=== PATIENT | female | born 1990 | race Caucasian/White ===

== ENCOUNTER 2023-05-17 05:58 | Inpatient (IN) | payer BC ==
[2023-05-17] VITALS (38 sets, daily range): BP systolic 90–141; BP diastolic 43–100; PULSE 68–115; TEMP 98.1–98.6
[~2023-05-17] VITALS: Ht 162.7 cm; Wt 83.3 kg
[~2023-05-17 05:58] MED LIST: BACTRIM DS 8001 TAB PO; CEFTIN250 MG PO; CETIRIZINE; LOVENOX 4040 MG/0.4 SQ; NORCO 325 MG-51 TAB PO; PNV-SELECT1 TAB PO; PRILOTC PO; PYRIDIUM 100MG100 MG PO; PYRIDIUM200 M1 PO; ZOFRAN 4MG T4 MG/TAB PO
--- NOTE | 2023-05-17 06:25 | NUR ---
PT ORIENTED TO ROOM, AND CHANGED INTO GOWN. FOB PRESENT. PLACED ON MONITORS. FHT CATAGORY 1 TRACING. VS STABLE. SVE 5/80/-2. PT REPORTS NO LOF OR VB. CX ARE UNCOMFORTABLE AND REGULAR APPROX 5 MINS APPART. REGULAR MOVEMENT.
--- NOTE | 2023-05-17 06:29 | NUR ---
DR ELLIOTT WAS CALLED TO LET HIM KNOW THAT PT WAS HERE AND 5-6 CM DIALATED. HE SAID TO GO AHEAD AND ADMIT HER. THAT SHE WAS ABLE TO HAVE AN EPIDURAL WHENEVER SHE WAS READY.
[2023-05-17 07:28] LABS: BASO # 0.1 K/mm3 (0.0-0.2); BASO % 0.3 % (0.0-2.0); EOS % 0.2 % (0.0-4.0); GRAN # 16.4 K/mm3 (1.4-6.5); GRAN % 84.9 % (42.2-75.2); HEMOGLOBIN 11.5 g/dl (12.5-16.0); LYMPH # 1.2 K/mm3 (1.2-3.4); LYMPH % 6.4 % (20.0-51.0); MEAN CELL VOLUME 90 fl (80.0-100.0); MEAN CORPUSCULAR HEMOGLOBIN 30 pg (27-31); MEAN CORPUSCULAR HGB CONC 33 g/dl (33.0-37.0); MEAN PLATELET VOLUME 10.5 fl (7.4-10.4); MONO # 1.4 K/mm3 (0.1-0.6); MONO % 7.1 % (1.7-9.3); PLATELET COUNT 221 K/mm3 (130-400); RED BLOOD COUNT 3.88 M/mm3 (4.10-5.30); REDCELL DISTRIBUTION WIDTH-CV 13.2 % (11.5-14.5)
[2023-05-17 07:30] LABS: HEMATOCRIT 34.8 % (37.0-47.0)
--- NOTE | 2023-05-17 07:30 | NUR ---
DR ELLIOTT ON UNIT AND AT BEDSIDE. INTRODUCED HIMSELF TO THE PT. LET HER KNOW THAT SHE COULD HAVE AN EPIDURAL AT ANY TIME AND HE WOULD CHECK BACK IN WITH HER LATER.
--- NOTE | 2023-05-17 07:37 | NUR ---
0737- Sury called for PT requested epidural. She said she would be here shortly. 0800- Sury on unit. 0806- Sury at bedside. Pt was repositioned to sitting, BP and o2 monitors applied. Verbal concent receaved. 0810- Single Shot. Pt tolerated well. VS stable. Pt repositioned to wedge left.
--- NOTE | 2023-05-17 08:00 | NUR ---
[address] INTO ROOM SO PT WAS SAT UP INTO POSITION. DIFFICULTY TRACING FHT AND CONTRACTIONS AT THIS TIME. THIS NURSE AUDIBLY LISTENED TO HEART TONES, 120'S TO 130'S. CX EVERY 3-5 MINUTES.
--- NOTE | 2023-05-17 09:09 | NUR ---
DR MENDEZ ON UNIT AND AT BEDSIDE. SVE /-1. AROM AT 0911, CLEAR FLUID. NO ODOR NOTED. DR MENDEZ WILL BE RESUMING CARE.
--- NOTE | 2023-05-17 10:22 | NUR ---
DR MENDEZ ON UNIT AND AT BEDSIDE. SVE /-1. WILL RECHECK IN 1 HOUR.
--- NOTE | 2023-05-17 11:32 | NUR ---
1132- E LIP/90/-1. PT HAS A LIP OF CERVIX ON THE RIGHT SIDE, NO CERVIX FELT ON THE LEFT. PT HAD MODERATE BLOODY SHOW. DR MENDEZ CALLED AT 1134 FOR AN UPDATE. UPDATE GIVEN. DR MENDEZ THEN ASKED FOR AN UPDATE IN 1 HOUR, AND ASKED TO START PITOCIN DUE TO CX SPACING.
--- NOTE | 2023-05-17 14:35 | NUR ---
1420- PT SVE /-1, ANTIERIOR CERVIX SLIGHTLY SWOLLEN. BABY OP. CALLED DR MENDEZ TO UPDATE. SHE SAID SHE WAS ON HER WAY. 1435- DR MENDEZ ON UNIT AND AT BEDSIDE. DR MENDEZ EXPLAINED THE OPTIONS FOR THE PATIENT, BUT EXPRESSED CONCERN ABOUT HER CERVIX SWELLING, AND BABIES SIZE AND POSITION. PT AND FOB AGREED A WOULD BE BEST. PITOCIN TURNED OFF PT PREPAIRED FOR OR. TP TAKEN TO OR AT 1454.
[2023-05-17] MEDS ORDERED: MOTRIN 800800 MG/TAB PO (16:50)
[2023-05-17] MEDS ORDERED: PERCOCET 325 MG1 TA2 PO (16:50)
[2023-05-18 03:00] VITALS: BP 122/67; PULSE 72; TEMP 98.1
[2023-05-18 08:45] VITALS: BP 118/48; PULSE 85; TEMP 97.7
[2023-05-18] MEDS ORDERED: PERCOCET 325 MG1 TA2 PO (09:29)
[2023-05-18] MEDS ORDERED: MOTRIN 800800 MG/TAB PO (09:29)
[2023-05-18 11:30] VITALS: BP 106/65; PULSE 80; TEMP 97.6
[2023-05-18 16:00] VITALS: BP 107/58; PULSE 84; TEMP 97.8
[2023-05-18 21:00] VITALS: BP 110/62; PULSE 66; TEMP 98
[2023-05-19 07:30] VITALS: BP 104/56; PULSE 79; TEMP 98.1
--- NOTE | 2023-05-19 09:42 | NUR ---
Initial visit; Parents thanked Publishing Agent for offering congratulations and God's blessings for the of their daughter. Publishing Agent thanked family for choosing our hospital.
[2023-05-19 16:34] VITALS: BP 104/58; PULSE 92; TEMP 97.9
--- NOTE | 2023-05-19 19:25 | NUR ---
Discharge instructions reviewed withg pt and spouse. Questions invited and answered. Off unit via wheelchair per pt request. Spouse carrying infant in car seat.
== END 2023-05-19 19:25 | disposition home or self-care (01) | DRG 788 ==
LOC: LDRO 05:58 → LDR 06:35 → OB 06:35
PROVIDERS: Obstetrics & Gynecology; ADMIT Obstetrics & Gynecology
PROC: 10D00Z1 Extraction of Products of Conception, Low, Open Approach (ICD-10-PCS; principal; 2023-05-17)
DX: O87.0 Superficial thrombophlebitis in the puerperium (principal); I80.01 Phlebitis and thrombophlebitis of superficial vessels of right lower extremity; Z37.0 Single live birth; Z3A.39 39 weeks gestation of pregnancy
CPT/HCPCS: J0456; J0665; J0690; J1100; J1650; J2405; J2550; J2590; J2795; J7050; J7120